=== PATIENT | female | born 1955 | race Caucasian/White ===

== ENCOUNTER 2025-01-23 11:16 | Day surgery (SDC) | payer OTHER ==
[2025-01-20 14:25] LABS: Absolute Basophils 0.1 K/uL (0-0.5); Absolute Eosinophils 0.1 K/uL (0-0.5); Absolute Lymphocytes (CBC) 2.8 K/uL (0.7-4.9); Absolute Monocytes 0.6 K/uL (0.1-1.3); Absolute Neutrophil 4.5 K/uL (1.8-8.0); Basophils % 0.7 % (0-1.3); Eosinophils % 1.8 % (0-4.4); Hematocrit 40.6 % (36.0-45.0); Hemoglobin 14.2 g/dL (12.0-15.0); Lymphocytes % 34.7 % (15.3-44.8); MCH 33.5 pg (27.0-35.0); MCV 95.9 fL (80-100); MPV 8.8 fL (7.6-11.3); Monocytes % 7.3 % (3.3-12.3); Neutrophils % 55.5 % (41.7-73.7); Platelets 276 thou/uL (152-406); RBC Red Blood Cell Count 4.24 M/uL (3.86-4.86)
[2025-01-20 14:28] LABS: PT Prothrombin Time 14.3 SECONDS (10-13.0); PTT, Activated Partial Thromb 32.4 SECONDS (27.2-37.4); Protime INR 1.27
[2025-01-20 14:40] LABS: Anion Gap 7.4 mEq/L (5.0-15.0); Potassium 3.4 mEq/L (3.5-5.1)
[2025-01-23] MEDS ORDERED: NA CHLORIDE 0.9% 500 ML ONE (11:38)
[2025-01-23] MEDS ORDERED: LIDOCAINE 1% MPF 5 ML VIAL ONE (12:09)
[2025-01-23] MEDS ORDERED: propofoL 200 MG/20 ML VIAL IV ONE (12:09)
[2025-01-23 14:14] VITALS: BP 118/73; O2SAT 100
--- NOTE | 2025-01-24 07:31 | TEE ---
TRANSESOPHAGEAL ECHOCARDIOGRAM REPORT CARDIOLOGY DEPARTMENT DATE OF STUDY: 01/23/2025 HEIGHT: 5'10" WEIGHT: 192 lbs DIAGNOSIS: ATRIAL FIBRILLATION RETAIL ATTENDANT COMMENTS: [facility] [facility] HISTORY: CATHERIZATION: SURGERY: PROSTHETIC VALVE: PACEMAKER: 2 DIMENSIONAL ASSESSMENT: RIGHT ATRIUM: LEFT ATRIUM: RIGHT VENTRICLE: LEFT VENTRICLE: TRICUSPID VALVE: MITRAL VALVE: PULMONIC VALVE: AORTIC VALVE: PERICARDIAL EFFUSION: AORTIC ROOT: EJECTION FRACTION: LEFT VENTRICULAR WALL MOTION: DOPPLER/COLOR FLOW: COMMENTS: 1. TRANSESOPHAGEAL ECHOCARDIOGRAM WAS INSERTED, NO DIFFICULTY 2. NO LEFT ATRIAL ENLARGEMENT [place] IS SEEN 3. NORMAL LEFT VENTRICULAR EJECTION FRACTION TECHNOLOGIST: CIPRIANO MYRICK
--- NOTE | 2025-01-29 13:01 | EKG ---
Test Date: 2025-01-23 Test Time: 13:47:17 Shear Operator Automatic: [id number] MEASUREMENT RESULTS: Intervals: Rate: 66 UT: 162 QRSD: 78 QT: 462 QTc: 484 [place]: P: 38 UT: 162 QRS: 68 T: 65 INTERPRETIVE STATEMENTS: Normal sinus rhythm Normal ECG Compared to ECG 01/20/2025 13:45:30 Atrial fibrillation no longer present Electronically Signed On 01-29-25 12:44:46 CDT by Marino Gomez
--- NOTE | 2025-01-29 13:18 | EKG ---
Test Date: 2025-01-20 Test Time: 13:45:30 Ground Instructor Basic: FRANDY MEASUREMENT RESULTS: Intervals: Rate: 80 [place]: QRSD: 80 QT: 376 QTc: 433 [place]: P: [place]: QRS: 63 T: 74 INTERPRETIVE STATEMENTS: Atrial fibrillation Low voltage QRS Abnormal ECG No previous ECG available for comparison Electronically Signed On 01-29-25 12:53:21 CDT by Marino Gomez
== END 2025-01-23 14:15 | disposition home or self-care (01) ==
LOC: CCL 11:16
PROVIDERS: ATTEND Internal Medicine
DX: I48.0 Paroxysmal atrial fibrillation (principal); I65.23 Occlusion and stenosis of bilateral carotid arteries; I10 Essential (primary) hypertension; E78.2 Mixed hyperlipidemia; F17.210 Nicotine dependence, cigarettes, uncomplicated; Z79.01 Long term (current) use of anticoagulants; Z79.82 Long term (current) use of aspirin; Z79.899 Other long term (current) drug therapy; Z88.2 Allergy status to sulfonamides; Z88.5 Allergy status to narcotic agent; Z88.8 Allergy status to other drugs, medicaments and biological substances; Z01.810 Encounter for preprocedural cardiovascular examination; Z82.49 Family history of ischemic heart disease and other diseases of the circulatory system
CPT/HCPCS: 93005 ×2; 93312; 85025; 80048; 36415; 85610; 85730; 92960; J2704; J2003; J7040; 01922